=== PATIENT | male | born 1960 | race Caucasian/White ===

== ENCOUNTER → 2019-05-27 08:40 | Outpatient (CLI) | payer BC ==
--- NOTE | ~2019-05-27 | EC ---
PATIENT:TONIO JOHNSON DATE OF SERVICE: 05/27/19 SEX: M MEDICAL RECORD: [id number] DATE OF : [birth year] [facility]GE [facility] PAT[facility]: 59 ADMISSION DATE: 05/27/19 REFERRING PHYSICIAN: INTERPRETING PHYSICIAN: SHERRILL SANCHEZ MD ECHOCARDIOGRAM REPORT ECHO CHARGES 4 ECHO COMPLETE Date: 05/27/19 CLINICAL DIAGNOSIS: HEART MURMUR ECHOCARDIOGRAPHIC MEASUREMENTS (adult normal given) AC root (d.<3.7cm) 3.8 cm LV Septum d (<1.2 cm> 1.2 cm Valve Excursion 1.4 cm LV Septum (systole) 1.5 cm Left Atria (s.<4.0cm> 3.4 cm LVPW d(<1.2cm) 1.3 cm RV (d.<2.3cm) 4.2 cm LVPW (sytole) 1.6 cm LV diastole(<5.6CM) 5.2 cm MV E-F(>70mm/sec) cm LV systole 3.5 cm LVOT Diameter 2.1 cm MV exc.(>10mm) cm Est.ejection fraction (50-75%) % DOPPLER: LVIT cm/sec A 84.0 cm/sec E 77.0 cm/sec LA cm/sec RVSP 25 mmHg LVOT 154 cm/sec AOP1/2T m/s Asc. Ao 159 cm/sec RVOT 88 cm/sec RA cm/sec PA cm/sec AV Gradient Peak 10.06mmHg AV Mean 5.56 mmHg AV Area 2.0 cm MV Gradient Peak 3.51 mmHg MV Mean 1.28 mmHg MV Area cm COMMENTS: Cigarette Machines Mechanic: 2 ODILIA KERR Pathology Laboratory Aides Teacher: 3 Dr. Baker TAPE# PACS Pericardial Effusion N DATE OF SERVICE: Adequate 2-D echo, Color-Flow and Spectral Doppler, and M-mode. Borderline LVH. LV internal dimension is normal. Wall motion is normal. EF is greater than or equal to 55%. Aortic valve is tricuspid. No evidence of stenosis by Doppler interrogation. Left atrium is normal. Mitral valve shows no prolapse. Trace MR. Right-sided chambers grossly normal. Trace TR. TRANSINT:[id number] Voice Confirmation ID: [id number] DOCUMENT ID: [id number] ECHOCARDIOGRAM REPORT [id number] TONIO JOHNSON SHERRILL SANCHEZ MD CC: [id number] DICTATION DATE: 05/31/19 1523 DRYCLEANER: 05/31/19 1844 DEP CLI 05/27/19 [facility] [address] [place] [address]
== END | disposition home or self-care (01) ==
LOC: D.HCCECHO 08:40
PROVIDERS: ATTEND Internal Medicine Interventional Cardiology
DX: R01.1 Cardiac murmur, unspecified (principal)